=== PATIENT | female | born 1960 | race Caucasian/White ===

== ENCOUNTER 2017-06-06 19:12 | Emergency (ER) | payer OTHER ==
[~2017-06-06] VITALS: Ht 162.6 cm; Wt 72.0 kg
[2017-06-06] MEDS ORDERED: MOTRIN600 MG PO (20:51)
[2017-06-06] MEDS ORDERED: ULTRAM50 MG PO (20:51)
[2017-06-06] MEDS ORDERED: KEFLEX500 MG PO (20:51)
[2017-06-06 21:26] VITALS: BP 164/98
== END 2017-06-06 21:28 | disposition home or self-care (01) ==
LOC: EME 19:12
PROC: 3E0234Z Introduction of Serum, Toxoid and Vaccine into Muscle, Percutaneous Approach (ICD-10-PCS; principal; 2017-06-06)
DX: S83.412A Sprain of medial collateral ligament of left knee, initial encounter (principal); S90.512A Abrasion, left ankle, initial encounter; I10 Essential (primary) hypertension; W18.2XXA Fall in (into) shower or empty bathtub, initial encounter; Y93.E1 Activity, personal bathing and showering; Z23 Encounter for immunization; F17.200 Nicotine dependence, unspecified, uncomplicated; G89.29 Other chronic pain
CPT/HCPCS: 73564; 99281; 99284